=== PATIENT | female | born 1960 | race Caucasian/White ===

== ENCOUNTER 2016-11-16 05:31 | Day surgery (SDC) | payer OTHER ==
[~2016-11-16] VITALS: Ht 172.7 cm; Wt 142.4 kg
[~2016-11-16 05:31] MED LIST: CELECOXIB200 MG PO; COUMADIN,JANTOVE1 MG PO; Coumadin dosing per PO; ENDOCET 5-3251 EACH PO; FEOSOL325 MG PO; LEVO-T175 MCG PO; LIDODERM 5% P1 PATCH TP; LIPITOR40 MG PO; Levothroid,Synthroid PO; NORVASC5 MG PO; OxyCONTIN PO; SENOKOT S,PE1 TABLET PO; SUDAFED30 MG PO; Skelaxin PO; Tums PO; Tylenol Regular Stre PO; ZANTAC150 MG PO; ZESTRIL40 MG PO; ZYBAN 150 MG T150 MG PO; Zestril,Prinivil PO
[2016-11-16 06:08] VITALS: BP 147/85
[2016-11-16 08:59] VITALS: BP 132/80
[2016-11-16 09:53] VITALS: BP 141/86
== END 2016-11-16 09:45 | disposition home or self-care (01) ==
LOC: SDC 05:31
PROC: 0UDB8ZX Extraction of Endometrium, Via Natural or Artificial Opening Endoscopic, Diagnostic (ICD-10-PCS; principal; 2016-11-16)
DX: N85.02 Endometrial intraepithelial neoplasia [EIN] (principal); N95.0 Postmenopausal bleeding; Z80.41 Family history of malignant neoplasm of ovary; E66.01 Morbid (severe) obesity due to excess calories; Z68.42 Body mass index [BMI] 45.0-49.9, adult; Z85.12 Personal history of malignant neoplasm of trachea; E78.5 Hyperlipidemia, unspecified; E03.9 Hypothyroidism, unspecified; I10 Essential (primary) hypertension; F17.200 Nicotine dependence, unspecified, uncomplicated; Z80.3 Family history of malignant neoplasm of breast; Z80.7 Family history of other malignant neoplasms of lymphoid, hematopoietic and related tissues; Z96.651 Presence of right artificial knee joint
CPT/HCPCS: 88305; 94640; J0330; J1100; J1885; J2405; J3010

== ENCOUNTER 2017-03-18 07:22 | Emergency (ER) | payer OTHER ==
[~2017-03-18] VITALS: Ht 172.7 cm; Wt 142.2 kg
[2017-03-18 10:18] LABS: HEMATOCRIT 46.6 % (36.0-46.0); MCH 30.4 PG (29.0-34.0); MCHC 33.7 G/DL (30.0-36.0); MCV 90.3 FL (83-99); MEAN PLAT.VOLUME 9.7 uM^3 (9.5-12.4); PLATELET COUNT 186 K/uL (156-360); RBC DIS.WIDTH-CV 13.7 % (11.8-14.6); RBC DIS.WIDTH-SD 45.7 % (39-53); RED BLOOD COUNT 5.16 M/uL (3.80-5.20); WHITE BLOOD COUNT 9.9 K/uL (4.1-10.2)
[2017-03-18 10:28] LABS: CHLORIDE 108 mEq/L (99-109); POTASSIUM 3.8 mEq/L (3.7-5.4); SODIUM 138 mEq/L (136-147)
[2017-03-18 10:30] LABS: GLUCOSE 104 mg/dL (70-99)
[2017-03-18 10:32] LABS: ANION GAP 6 MEQ/L (2-14)
[2017-03-18] MEDS ORDERED: LOVENOX30 MG/0.3 SC (10:32)
[2017-03-18] MEDS ORDERED: COUMADIN5 MG PO (10:32)
[2017-03-18 10:34] LABS: GFR ESTIMATE (CALCULATED) > 59 mL/min/
[2017-03-18 10:35] LABS: UREA NITROGEN (BUN) 9 mg/dL (9-23)
[2017-03-18 11:04] VITALS: BP 149/98
== END 2017-03-18 11:06 | disposition home or self-care (01) ==
LOC: EME 07:22
PROVIDERS: Nurse Practitioner Family
DX: I82.4Z1 Acute embolism and thrombosis of unspecified deep veins of right distal lower extremity (principal); F17.200 Nicotine dependence, unspecified, uncomplicated; I10 Essential (primary) hypertension
CPT/HCPCS: 80048; 85027; 93971; 99281; 99284; J1650

== ENCOUNTER → 2018-02-22 | Outpatient (CLI) | payer OTHER ==
[~2018-02-22] VITALS: Ht 172.7 cm; Wt 156.0 kg
[~2018-02-22] MED LIST changes: +ALDACTONE25 MG PO; +CELEBREX200 MG PO; +COUMADIN5 MG PO; +DEXILANT60 MG PO; +LOVENOX30 MG/0.3 SC
== END | disposition home or self-care (01) ==
LOC: AMB 10:43
DX: K29.00 Acute gastritis without bleeding (principal); K22.2 Esophageal obstruction; K44.9 Diaphragmatic hernia without obstruction or gangrene; K21.0 Gastro-esophageal reflux disease with esophagitis; I10 Essential (primary) hypertension; E78.5 Hyperlipidemia, unspecified; E03.9 Hypothyroidism, unspecified; Z87.891 Personal history of nicotine dependence
CPT/HCPCS: 88305; 88342 TC; C1725; J3010